=== PATIENT | male | born 1950 | race African-American/Black ===

== ENCOUNTER 2017-07-10 06:36 | Inpatient (IN) | payer OTHER ==
[2017-07-10 06:51] LABS: ADD MAN DIFF? NO
[2017-07-10 06:55] LABS: BASO % 0 % (0-3); EOS % 0 % (0-3); HEMATOCRIT 37.4 % (39.0-53.0); HEMOGLOBIN 12.7 g/dL (13.0-17.5); LYMPH # 0.9 x10^3/uL (1.0-4.8); LYMPH % 7 % (24-48); MEAN CORPUSCULAR HEMOGLOBIN 30 pg (25-35); MEAN CORPUSCULAR HGB CONC 34 g/dL (31-37); MEAN CORPUSCULAR VOLUME 89 fL (79-100); MONO # 1.5 x10^3/uL (0.0-1.1); MONO % 11 % (0-9); NEUT # 11.7 x10^3uL (1.8-7.7); NEUT % 83 % (31-73); PLATELET COUNT 229 x10^3/uL (140-400); RED BLOOD COUNT 4.21 x10^6/uL (4.30-5.70); RED CELL DISTRIBUTION WIDTH 16.6 % (11.5-14.5); WHITE BLOOD COUNT 14.1 x10^3/uL (4.0-11.0)
[2017-07-10] MEDS ORDERED: ALBUTEROL SULFATE 2.5 MG/3 ML NEBU. (07:00)
[2017-07-10] MEDS: ALBUTEROL SULFATE 2.5 MG/3 ML NEBU. NEB (07:03)
[2017-07-10] MEDS: IV NORMAL SALINE 1000ML BAG 1,000 ML IV ×4 (07:05→15:46)
[2017-07-10] MEDS: methylPREDNISolone SOD SUCC PF 125 MG/2 ML VIAL. IV (07:05)
[2017-07-10 07:10] LABS: ANION GAP 9 (6-14); BLOOD UREA NITROGEN 65 mg/dL (8-26); BUN/CREATININE RATIO 34 (6-20); CARBON DIOXIDE 28 mmol/L (21-32); CHLORIDE 105 mmol/L (98-107); CREATININE 1.9 mg/dL (0.7-1.3); GFR 35.4; GLUCOSE 149 mg/dL (70-99); POTASSIUM 3.9 mmol/L (3.5-5.1); SODIUM 142 mmol/L (136-145)
[2017-07-10 07:11] LABS: ETHANOL < 10 mg/dL (0-10)
[2017-07-10 07:16] LABS: LACTIC ACID 2.1 mmol/L (0.4-2.0)
[2017-07-10 07:17] LABS: INR 1.6 (0.8-1.1); PARTIAL THROMBOPLASTIN TIME 32 SEC (24-38); PROTHROMBIN TIME PATIENT 17.7 SEC (11.7-14.0)
[2017-07-10 07:18] LABS: TROPONINI < 0.017 ng/mL (0.000-0.055)
[2017-07-10 07:22] LABS: ALBUMIN 2.2 g/dL (3.4-5.0); ALBUMIN/GLOBULIN RATIO 0.4 (1.0-1.7); ALK PHOS 57 U/L (46-116); ALT (SGPT) 15 U/L (16-63); AST (SGOT) 15 U/L (15-37); CREATINE KINASE 88 U/L (39-308); LIPASE 37 U/L (73-393); MAGNESIUM 2.3 mg/dL (1.8-2.4); TOTAL BILIRUBIN 0.7 mg/dL (0.2-1.0); TOTAL PROTEIN 7.6 g/dL (6.4-8.2)
[2017-07-10 07:22] LABS: NT-PRO BNP 2216 pg/mL (0-124)
[2017-07-10 07:23] LABS: THYROID STIM HORMONE (TSH) 0.601 uIU/mL (0.358-3.74)
[2017-07-10] MEDS ORDERED: ONDANSETRON PF 4 MG/2 ML VIAL. IV ×2 (07:30→08:45)
[2017-07-10] MEDS: ALBUTEROL SULFATE 2.5 MG/3 ML NEBU. CONT NEB (07:30)
[2017-07-10 07:41] LABS: INFLUENZA A PATIENT NEGATIVE (NEGATIVE); INFLUENZA B PATIENT NEGATIVE (NEGATIVE)
[2017-07-10 07:42] LABS: OBC FLU VALID
[2017-07-10] MEDS ORDERED: VANCOMYCIN 1.25 GM in IV NORMAL SALINE 250ML 250 ML IV (07:45)
[2017-07-10 07:54] LABS: BASE EXCESS COOX -2 mmol/L (-3-3); HCO3 COOX 23 mmol/L (21-28); METHEMOGLOBIN 0.4 % (0.0-1.9); OXYHEMOGLOBIN 89.9 %; PCO2 COOX 40 mmHg (35-46); PH COOX 7.38 (7.35-7.45); PO2 COOX 67 mmHg (65-108); SAT O2 COOX 91 % (92-99); TOTAL HEMOGLOBIN 12.9 g/dL
[2017-07-10 07:55] LABS: FIO2 COOX 36
[2017-07-10] MEDS: PIPERACILLIN/TAZOBACTAM 3.375 GM in IV NORMAL SALINE 50ML 50 ML IV ×3 (08:27→17:29)
[2017-07-10] MEDS: NOREPINEPHRIN PREMIX 250 ML IV (08:34)
[2017-07-10] MEDS: IV RINGERS,LACTATED 1000ML 1,000 ML IV ×2 (08:35→10:03)
[2017-07-10] MEDS ORDERED: ACETAMINOPHEN 500 MG TABLET PO (08:45)
[2017-07-10 08:56] LABS: LACTIC ACID 2.1 mmol/L (0.4-2.0)
[2017-07-10] MEDS ORDERED: PIP/TAZO PER PHARMACY MC (09:45)
[2017-07-10] MEDS ORDERED: GUAIFENESIN PO (10:00)
[2017-07-10] MEDS ORDERED: [UNRECOGNIZED DRUG - OTHER] PO (10:00)
[2017-07-10] MEDS ORDERED: DEXTROMETHORPHAN PO (10:00)
[2017-07-10] MEDS ORDERED: PHENYLEPHRINE PO (10:00)
[2017-07-10] MEDS: VANCOMYCIN 1.5 GM in IV DEXTROSE 5 %-0.2 % NACL 500 ML IV (10:03)
[2017-07-10 10:17] LABS: LACTIC ACID 2.4 mmol/L (0.4-2.0)
[2017-07-10] MEDS: ASPIRIN ENTERIC COATED 81 MG TABLET.DR. PO (10:58)
[2017-07-10] MEDS: DOCUSATE SODIUM 100 MG CAPSULE. PO ×2 (10:58→21:49)
[2017-07-10] MEDS: methylPREDNISolone SOD SUCC PF 40 MG/ML VIAL. IV ×3 (10:58→21:49)
[2017-07-10] MEDS: DIVALPROEX DELAYED RELEASE 500 MG TABLET.DR. PO ×2 (10:58→21:49)
[2017-07-10] MEDS: IPRATRPIUM/ALBUTEROL 0.5/2.5MG 3 ML NEBU. NEB ×3 (11:51→19:52)
[2017-07-10] MEDS ORDERED: IPRATRPIUM/ALBUTEROL 0.5/2.5MG 3 ML NEBU. NEB (13:00)
[2017-07-10] MEDS: VANCOMYCIN PER PHARMACY MC (13:51)
[2017-07-10] MEDS: BENZONATATE 100 MG CAPSULE. PO ×2 (13:53→21:49)
[2017-07-10] MEDS: HEPARIN PF for SUB-Q USE 5,000 UNIT/0.5 ML VIAL. SQ ×2 (13:53→21:50)
[2017-07-10] MEDS: guaiFENesin DM 200MG/20MG 10 ML SYRUP PO ×3 (13:54→21:49)
[2017-07-10 14:21] LABS: LACTIC ACID 1.9 mmol/L (0.4-2.0)
[2017-07-10 20:08] LABS: MRSA BY PCR Negative (Negative)
[2017-07-10] MEDS: BENZTROPINE MESYLATE 1 MG TABLET. PO (21:49)
[2017-07-10] MEDS: OLANZapine 5 MG TABLET PO (21:49)
[2017-07-11] MEDS: PIPERACILLIN/TAZOBACTAM 3.375 GM in IV NORMAL SALINE 50ML 50 ML IV ×3 (00:01→12:35)
[2017-07-11] MEDS: IV NORMAL SALINE 1000ML BAG 1,000 ML IV ×2 (01:41→04:45)
[2017-07-11 05:10] LABS: BASO % 0 % (0-3); EOS % 0 % (0-3); HEMATOCRIT 34.6 % (39.0-53.0); HEMOGLOBIN 11.5 g/dL (13.0-17.5); LYMPH # 0.6 x10^3/uL (1.0-4.8); LYMPH % 4 % (24-48); MEAN CORPUSCULAR HEMOGLOBIN 30 pg (25-35); MEAN CORPUSCULAR HGB CONC 33 g/dL (31-37); MEAN CORPUSCULAR VOLUME 89 fL (79-100); MONO # 0.9 x10^3/uL (0.0-1.1); MONO % 5 % (0-9); NEUT # 16.6 x10^3uL (1.8-7.7); NEUT % 92 % (31-73); PLATELET COUNT 250 x10^3/uL (140-400); RED BLOOD COUNT 3.88 x10^6/uL (4.30-5.70); RED CELL DISTRIBUTION WIDTH 16.6 % (11.5-14.5); WHITE BLOOD COUNT 18.1 x10^3/uL (4.0-11.0)
[2017-07-11 05:17] LABS: ADD MAN DIFF? YES
[2017-07-11 05:31] LABS: ANION GAP 8 (6-14); BLOOD UREA NITROGEN 37 mg/dL (8-26); CALCIUM 7.9 mg/dL (8.5-10.1); CARBON DIOXIDE 24 mmol/L (21-32); CHLORIDE 112 mmol/L (98-107); CREATININE 1.2 mg/dL (0.7-1.3); GFR 72.9; GLUCOSE 195 mg/dL (70-99); POTASSIUM 3.6 mmol/L (3.5-5.1); SODIUM 144 mmol/L (136-145)
[2017-07-11] MEDS: HEPARIN PF for SUB-Q USE 5,000 UNIT/0.5 ML VIAL. SQ ×3 (05:45→22:30)
[2017-07-11] MEDS: methylPREDNISolone SOD SUCC PF 40 MG/ML VIAL. IV ×3 (05:45→22:25)
[2017-07-11] MEDS: IPRATRPIUM/ALBUTEROL 0.5/2.5MG 3 ML NEBU. NEB ×4 (08:49→20:43)
[2017-07-11 09:02] LABS: % ATYL 1 % (0-0); % BANDS 26 % (0-9); % LYMPHS 3 % (24-48); % MONOS 4 % (0-10); % SEGS 66 % (35-66); PLT ESTIMATE ADEQUATE (ADEQUATE)
[2017-07-11] MEDS: BENZONATATE 100 MG CAPSULE. PO ×3 (09:15→20:30)
[2017-07-11] MEDS: DOCUSATE SODIUM 100 MG CAPSULE. PO ×2 (09:15→20:29)
[2017-07-11] MEDS: guaiFENesin DM 200MG/20MG 10 ML SYRUP PO ×4 (09:16→20:29)
[2017-07-11] MEDS: DIVALPROEX DELAYED RELEASE 500 MG TABLET.DR. PO ×2 (09:16→20:31)
[2017-07-11] MEDS: SERTRALINE 50 MG TABLET. PO (09:16)
[2017-07-11] MEDS: LACTOBACILLUS RHAMNOSUS GG 1 CAPSULE. PO ×2 (09:16→20:30)
[2017-07-11] MEDS: LEVOTHYROXINE 75 MCG TABLET PO (09:16)
[2017-07-11] MEDS: NICOTINE 21MG PATCH. TD (09:17)
[2017-07-11] MEDS: POLYETHYLENE GLYCOL 3350 17 GM PACKET. PO (09:17)
[2017-07-11] MEDS: ASPIRIN ENTERIC COATED 81 MG TABLET.DR. PO (09:19)
[2017-07-11] MEDS: VANCOMYCIN 1 GM in IV NORMAL SALINE 250ML 250 ML IV (09:20)
[2017-07-11] MEDS: VANCOMYCIN PER PHARMACY MC (11:02)
[2017-07-11 11:30] LABS: BILIRUBIN,URINE NEGATIVE (NEG); CLARITY,URINE CLEAR; COLOR,URINE YELLOW; GLUCOSE,URINE NEGATIVE (NEG); NITRITE,URINE NEGATIVE (NEG); PH,URINE 5.5; PROTEIN,URINE NEGATIVE (NEG-TRACE)
[2017-07-11 11:37] LABS: BARBITURATES NEG (NEG); BENZODIAZEPINES NEG (NEG); CANNABINOIDS NEG (NEG); COCAINE NEG (NEG); METHADONE NEG (NEG); OPIATES NEG (NEG); PHENCYCLIDINE NEG (NEG)
[2017-07-11 11:43] LABS: BACTERIA,URINE 0 /HPF (0-FEW); RBC,URINE 0 /HPF (0-2); SQUAMOUS EPITHELIAL CELL,UR OCC /LPF; WBC,URINE OCC /HPF (0-4)
[2017-07-11 11:48] LABS: AMPHETAMINE/METHAMPHETAMINE NEG (NEG); ETHANOL, URINE NEG (NEG)
[2017-07-11] MEDS: PIPERACILLIN/TAZOBACTAM 4.5 GM in IV NORMAL SALINE 100ML 100 ML IV (17:24)
[2017-07-11] MEDS: OLANZapine 5 MG TABLET PO (20:30)
[2017-07-11] MEDS: BENZTROPINE MESYLATE 1 MG TABLET. PO (20:30)
[2017-07-11] MEDS: FAMOTIDINE 20 MG TABLET. PO (20:30)
[2017-07-11 22:10] LABS: LEGIONELLA AG UR Negative (Negative)
[2017-07-12] MEDS: PIPERACILLIN/TAZOBACTAM 4.5 GM in IV NORMAL SALINE 100ML 100 ML IV ×4 (00:08→17:44)
[2017-07-12] MEDS: methylPREDNISolone SOD SUCC PF 40 MG/ML VIAL. IV (06:04)
[2017-07-12] MEDS: HEPARIN PF for SUB-Q USE 5,000 UNIT/0.5 ML VIAL. SQ ×3 (06:04→21:44)
[2017-07-12] MEDS: IPRATRPIUM/ALBUTEROL 0.5/2.5MG 3 ML NEBU. NEB ×4 (07:09→20:00)
[2017-07-12] MEDS: LACTOBACILLUS RHAMNOSUS GG 1 CAPSULE. PO ×2 (08:22→21:38)
[2017-07-12] MEDS: DOCUSATE SODIUM 100 MG CAPSULE. PO ×2 (08:22→21:38)
[2017-07-12] MEDS: POLYETHYLENE GLYCOL 3350 17 GM PACKET. PO (08:22)
[2017-07-12] MEDS: LEVOTHYROXINE 75 MCG TABLET PO (08:23)
[2017-07-12] MEDS: SERTRALINE 50 MG TABLET. PO (08:23)
[2017-07-12] MEDS: guaiFENesin DM 200MG/20MG 10 ML SYRUP PO ×4 (08:23→21:38)
[2017-07-12] MEDS: DIVALPROEX DELAYED RELEASE 500 MG TABLET.DR. PO ×2 (08:23→21:37)
[2017-07-12] MEDS: BENZONATATE 100 MG CAPSULE. PO ×3 (08:23→21:38)
[2017-07-12] MEDS: ASPIRIN ENTERIC COATED 81 MG TABLET.DR. PO (08:24)
[2017-07-12 15:30] LABS: SPECIMEN SOURCE Urine (.); STREP PNEUMO ANTIGEN Negative (Negative)
[2017-07-12] MEDS: ONDANSETRON PF 4 MG/2 ML VIAL. IV (17:08)
[2017-07-12] MEDS: OLANZapine 5 MG TABLET PO (21:37)
[2017-07-12] MEDS: FAMOTIDINE 20 MG TABLET. PO (21:38)
[2017-07-12] MEDS: BENZTROPINE MESYLATE 1 MG TABLET. PO (21:38)
[2017-07-13] MEDS: PIPERACILLIN/TAZOBACTAM 4.5 GM in IV NORMAL SALINE 100ML 100 ML IV ×4 (00:26→18:01)
[2017-07-13] MEDS: HEPARIN PF for SUB-Q USE 5,000 UNIT/0.5 ML VIAL. SQ ×3 (05:50→21:54)
[2017-07-13] MEDS: IPRATRPIUM/ALBUTEROL 0.5/2.5MG 3 ML NEBU. NEB ×4 (07:47→20:26)
[2017-07-13] MEDS: POLYETHYLENE GLYCOL 3350 17 GM PACKET. PO (08:30)
[2017-07-13] MEDS: guaiFENesin DM 200MG/20MG 10 ML SYRUP PO ×4 (08:30→20:21)
[2017-07-13] MEDS: DOCUSATE SODIUM 100 MG CAPSULE. PO ×2 (08:31→20:21)
[2017-07-13] MEDS: LACTOBACILLUS RHAMNOSUS GG 1 CAPSULE. PO ×2 (08:31→20:20)
[2017-07-13] MEDS: BENZONATATE 100 MG CAPSULE. PO ×3 (08:31→20:21)
[2017-07-13] MEDS: DIVALPROEX DELAYED RELEASE 500 MG TABLET.DR. PO ×2 (08:31→20:21)
[2017-07-13] MEDS: predniSONE 20 MG TABLET PO (08:31)
[2017-07-13] MEDS: LEVOTHYROXINE 75 MCG TABLET PO (08:31)
[2017-07-13] MEDS: ASPIRIN ENTERIC COATED 81 MG TABLET.DR. PO (08:31)
[2017-07-13] MEDS: SERTRALINE 50 MG TABLET. PO (08:33)
[2017-07-13 09:42] LABS: ADD MAN DIFF? NO
[2017-07-13 09:47] LABS: BASO % 0 % (0-3); EOS % 0 % (0-3); HEMATOCRIT 35.3 % (39.0-53.0); HEMOGLOBIN 11.7 g/dL (13.0-17.5); LYMPH # 1.5 x10^3/uL (1.0-4.8); LYMPH % 8 % (24-48); MEAN CORPUSCULAR HEMOGLOBIN 29 pg (25-35); MEAN CORPUSCULAR HGB CONC 33 g/dL (31-37); MEAN CORPUSCULAR VOLUME 89 fL (79-100); MONO # 1.5 x10^3/uL (0.0-1.1); MONO % 8 % (0-9); NEUT # 15.9 x10^3uL (1.8-7.7); NEUT % 84 % (31-73); PLATELET COUNT 197 x10^3/uL (140-400); RED BLOOD COUNT 3.97 x10^6/uL (4.30-5.70); RED CELL DISTRIBUTION WIDTH 16.7 % (11.5-14.5)
[2017-07-13 09:56] LABS: ANION GAP 6 (6-14); BLOOD UREA NITROGEN 17 mg/dL (8-26); CALCIUM 7.7 mg/dL (8.5-10.1); CARBON DIOXIDE 31 mmol/L (21-32); CHLORIDE 111 mmol/L (98-107); CREATININE 1.1 mg/dL (0.7-1.3); GFR 80.5; GLUCOSE 140 mg/dL (70-99); POTASSIUM 4.1 mmol/L (3.5-5.1); SODIUM 148 mmol/L (136-145)
[2017-07-13 11:10] LABS: SEDIMENTATION RATE 32 (0-15)
[2017-07-13] MEDS ORDERED: levOFLOXacin PER PHARMACY. MC (11:15)
[2017-07-13] MEDS ORDERED: diphenhydrAMINE HCL 25 MG CAPSULE PO (11:15)
[2017-07-13] MEDS: diphenhydrAMINE HCL 25 MG CAPSULE PO (11:24)
[2017-07-13] MEDS: VANCOMYCIN 1.25 GM in IV DEXTROSE 5 %-0.2 % NACL 250 ML IV (11:25)
[2017-07-13] MEDS ORDERED: PIPERACILLIN/TAZOBACTAM 3.375 GM in IV NORMAL SALINE 50ML 50 ML IV (12:00)
[2017-07-13] MEDS: VANCOMYCIN PER PHARMACY MC (12:37)
[2017-07-13] MEDS: BENZTROPINE MESYLATE 1 MG TABLET. PO (20:20)
[2017-07-13] MEDS: OLANZapine 5 MG TABLET PO (20:21)
[2017-07-13] MEDS: FAMOTIDINE 20 MG TABLET. PO (20:21)
[2017-07-14] MEDS: PIPERACILLIN/TAZOBACTAM 4.5 GM in IV NORMAL SALINE 100ML 100 ML IV ×4 (00:23→17:01)
[2017-07-14] MEDS: HEPARIN PF for SUB-Q USE 5,000 UNIT/0.5 ML VIAL. SQ ×3 (05:57→23:05)
[2017-07-14] MEDS: POLYETHYLENE GLYCOL 3350 17 GM PACKET. PO (07:49)
[2017-07-14] MEDS: predniSONE 10 MG TABLET PO (07:49)
[2017-07-14] MEDS: ASPIRIN ENTERIC COATED 81 MG TABLET.DR. PO (07:50)
[2017-07-14] MEDS: LEVOTHYROXINE 75 MCG TABLET PO (07:50)
[2017-07-14] MEDS: BENZONATATE 100 MG CAPSULE. PO ×3 (07:50→20:10)
[2017-07-14] MEDS: LACTOBACILLUS RHAMNOSUS GG 1 CAPSULE. PO ×2 (07:50→20:10)
[2017-07-14] MEDS: guaiFENesin DM 200MG/20MG 10 ML SYRUP PO ×4 (07:50→20:09)
[2017-07-14] MEDS: DOCUSATE SODIUM 100 MG CAPSULE. PO ×2 (07:50→20:10)
[2017-07-14] MEDS: SERTRALINE 50 MG TABLET. PO (07:50)
[2017-07-14] MEDS: DIVALPROEX DELAYED RELEASE 500 MG TABLET.DR. PO ×2 (07:51→20:10)
[2017-07-14] MEDS: IPRATRPIUM/ALBUTEROL 0.5/2.5MG 3 ML NEBU. NEB ×4 (08:19→20:31)
[2017-07-14] MEDS: VANCOMYCIN 750 MG in IV 1/2 NORMAL SALINE 250 ML IV (11:11)
[2017-07-14] MEDS: VANCOMYCIN PER PHARMACY MC (14:51)
[2017-07-14] MEDS: BENZTROPINE MESYLATE 1 MG TABLET. PO (20:10)
[2017-07-14] MEDS: FAMOTIDINE 20 MG TABLET. PO (20:10)
[2017-07-15] MEDS: PIPERACILLIN/TAZOBACTAM 4.5 GM in IV NORMAL SALINE 100ML 100 ML IV ×3 (00:50→12:00)
[2017-07-15] MEDS: HEPARIN PF for SUB-Q USE 5,000 UNIT/0.5 ML VIAL. SQ ×2 (06:28→13:35)
[2017-07-15 06:29] LABS: HEMOGLOBIN 11.3 g/dL (13.0-17.5); MEAN CORPUSCULAR HEMOGLOBIN 30 pg (25-35); MEAN CORPUSCULAR HGB CONC 33 g/dL (31-37); MEAN CORPUSCULAR VOLUME 89 fL (79-100); PLATELET COUNT 195 x10^3/uL (140-400); RED BLOOD COUNT 3.84 x10^6/uL (4.30-5.70); WHITE BLOOD COUNT 15.8 x10^3/uL (4.0-11.0)
[2017-07-15] MEDS: IPRATRPIUM/ALBUTEROL 0.5/2.5MG 3 ML NEBU. NEB ×3 (07:16→16:08)
[2017-07-15] MEDS: LACTOBACILLUS RHAMNOSUS GG 1 CAPSULE. PO (10:41)
[2017-07-15] MEDS: predniSONE 20 MG TABLET PO (10:41)
[2017-07-15] MEDS: SERTRALINE 50 MG TABLET. PO (10:41)
[2017-07-15] MEDS: ASPIRIN ENTERIC COATED 81 MG TABLET.DR. PO (10:41)
[2017-07-15] MEDS: DIVALPROEX DELAYED RELEASE 500 MG TABLET.DR. PO (10:41)
[2017-07-15] MEDS: BENZONATATE 100 MG CAPSULE. PO ×2 (10:42→13:26)
[2017-07-15] MEDS: LEVOTHYROXINE 75 MCG TABLET PO (10:42)
[2017-07-15] MEDS: POLYETHYLENE GLYCOL 3350 17 GM PACKET. PO (10:42)
[2017-07-15] MEDS: DOCUSATE SODIUM 100 MG CAPSULE. PO (10:42)
[2017-07-15] MEDS: guaiFENesin DM 200MG/20MG 10 ML SYRUP PO ×3 (10:42→17:45)
[2017-07-15 11:22] LABS: VANC TR 5.3 mcg/mL (10.0-20.0)
[2017-07-15] MEDS: VANCOMYCIN 750 MG in IV 1/2 NORMAL SALINE 250 ML IV (11:30)
[2017-07-15] MEDS: VANCOMYCIN PER PHARMACY MC (13:48)
[2017-07-15] MEDS ORDERED: VANCOMYCIN 750 MG in IV 1/2 NORMAL SALINE 250 ML IV (22:00)
== END 2017-07-15 18:00 | disposition home or self-care (01) | DRG 871 ==
LOC: ER 06:36 → 5 SOUTH 07-11 12:22 → 1 WEST ICU 07:32
PROC: 5A09357 Assistance with Respiratory Ventilation, Less than 24 Consecutive Hours, Continuous Positive Airway Pressure (ICD-10-PCS; principal; 2017-07-10)
DX: A41.9 Sepsis, unspecified organism (principal); J15.6 Pneumonia due to other Gram-negative bacteria; J96.01 Acute respiratory failure with hypoxia; E43 Unspecified severe protein-calorie malnutrition; R65.21 Severe sepsis with septic shock; G92 Toxic encephalopathy; N17.9 Acute kidney failure, unspecified; J84.9 Interstitial pulmonary disease, unspecified; J44.0 Chronic obstructive pulmonary disease with (acute) lower respiratory infection; I11.0 Hypertensive heart disease with heart failure; I50.9 Heart failure, unspecified; E03.9 Hypothyroidism, unspecified; E78.5 Hyperlipidemia, unspecified; F17.210 Nicotine dependence, cigarettes, uncomplicated; F20.9 Schizophrenia, unspecified; F41.9 Anxiety disorder, unspecified; I25.10 Atherosclerotic heart disease of native coronary artery without angina pectoris; L29.9 Pruritus, unspecified; G89.29 Other chronic pain; T38.0X5A Adverse effect of glucocorticoids and synthetic analogues, initial encounter; Y95 Nosocomial condition; Z79.82 Long term (current) use of aspirin; Z79.899 Other long term (current) drug therapy
CPT/HCPCS: 36415; 36600; 71045; 80048; 80053; 80202; 80307; 81001; 82550; 82805; 83605; 83690; 83735; 83880; 84443; 84484; 85007; 85025; 85027; 85610; 85651; 85730; 87040; 87449; 87641; 87804; 87804-59; 93005; 93306; 94640; 94644; 94660; 94760; 96361; 96365; 96368; 96375; 97116-GP; 97161-GP; 97166-GO; 97530-GO; 97530-GP; 97535-GO; 99291; 99291-25; G0480; J1956; J2405; J2543; J2920; J2930; J3370; J7030; J7050; J7120; J7512; J7613; J7620; Q0163